=== PATIENT | female | born 1955 | race Native Hawaiian/Other Pacific Islander ===

== ENCOUNTER 2020-03-23 13:27 | Outpatient (CLI) | payer BC ==
[2020-03-23 16:19] LABS: PLATELET COUNT 283 K/uL (152-353)
== END 2020-03-23 21:09 | disposition home or self-care (01) ==
LOC: LAB 13:27
PROVIDERS: ATTEND Nurse Practitioner Family
DX: Z00.00 Encounter for general adult medical examination without abnormal findings (principal); F90.0 Attention-deficit hyperactivity disorder, predominantly inattentive type; G43.909 Migraine, unspecified, not intractable, without status migrainosus; Z79.899 Other long term (current) drug therapy; R53.83 Other fatigue
CPT/HCPCS: 85027

== ENCOUNTER 2020-09-13 13:34 | Outpatient (CLI) | payer BC | END 2020-09-13 22:23 | disposition home or self-care (01) | LOC: MRI 13:34 | PROVIDERS: ATTEND Nurse Practitioner Family | DX: Z12.31 Encounter for screening mammogram for malignant neoplasm of breast (principal); M54.40 Lumbago with sciatica, unspecified side; W19.XXXA Unspecified fall, initial encounter ==

== ENCOUNTER 2021-12-11 10:39 | Outpatient (CLI) | payer OTHER | END 2021-12-11 19:50 | disposition home or self-care (01) | LOC: MAMMO 10:39 | PROVIDERS: ATTEND Internal Medicine | DX: Z12.31 Encounter for screening mammogram for malignant neoplasm of breast (principal) ==

== ENCOUNTER 2022-01-10 10:16 | Outpatient (CLI) | payer OTHER | END 2022-01-10 23:24 | disposition home or self-care (01) | LOC: RAD 10:16 | PROVIDERS: ATTEND Internal Medicine | DX: J40 Bronchitis, not specified as acute or chronic (principal) ==

== ENCOUNTER 2022-06-26 07:34 | Outpatient (CLI) | payer OTHER | END 2022-06-26 19:22 | disposition home or self-care (01) | LOC: US 07:34 → MAMMO 10:00 → US 19:22 | PROVIDERS: ATTEND Orthopaedic Surgery | DX: M54.59 Other low back pain (principal); M54.16 Radiculopathy, lumbar region; M51.36 Other intervertebral disc degeneration, lumbar region; S32.030A Wedge compression fracture of third lumbar vertebra, initial encounter for closed fracture; R92.8 Other abnormal and inconclusive findings on diagnostic imaging of breast; R79.89 Other specified abnormal findings of blood chemistry; Y92.89 Other specified places as the place of occurrence of the external cause ==